=== PATIENT | female | born 1960 | race Asian ===

== ENCOUNTER 2016-08-13 17:36 | Emergency (ER) | payer OTHER ==
[~2016-08-13 17:36] MED LIST: ALBU8.5H2 IH; ASCO10007 PO; BUSP10TA2 PO; CALC-721 PO; CALC-766 PO; CHOL10008 PO; CYCL1DRO OP; ESCI10TA3 PO; HYDR25TA4 PO; MULT-36 PO; NPR500T PO; OMEG1CAP99 PO; OMEP-113 PO; PRAV20TA2 PO; PROC-4 PO; VALS160T23 PO
--- NOTE | 2016-08-13 17:42 | ED.REPORT ---
HPI-General Illness Date of Service August 13, 2016 ED Provider: Roderick Mensah MD Patient is a 56 year old female with a history of hypertension, hyperlipidemia, GERD and migraine headaches who presents to the ED via EMS following a syncopal episode that occurred just prior to arrival. Patient was reportedly standing in line at [employer] began to experience dizziness, tunnel vision and lightheadedness. She states that when she passed out that a bystander was able to catch her and that she did not strike her head. Family reports that he left the patient 5 minutes prior to the incident and she was completely normal. Since the episode, patient has been reportedly been somnolent She is unsure if she lost consciousness. She denies head injury, fever, chills vomiting, or diarrhea. Patient denies any previous episodes of similar symptoms or history of seizures. Current medication list include Lexapro, Buspirone, hydrochlorothiazide, statin, omeprazole, amlodipine and multivitamins. She denies taking more of any medication than prescribed. She admits that she has not been eating and drinking much. Nursing Notes Stated Complaint: SYNCOPY Nursing Notes Reviewed: Yes Allergies: Coded Allergies: oxycodone (Verified Adverse Reaction, Intermediate, ITCHING, 08/13/16) prednisone (Verified Adverse Reaction, Intermediate, Rash,Itching,, ) Scheduled Ascorbic Acid (Vitamin C) 1,000 Mg Tablet 1,000 MG PO DAILY Buspirone (Buspirone) 10 Mg Tablet 10 MG PO AM Calcium Carbonate/Vitamin D3 (Calcium 500 + D Tablet) 1 Each Tablet 1 EACH PO DAILY Cholecalciferol (Vitamin D3) (Vitamin D3) 1,000 Unit Tab.chew 1,000 UNIT PO DAILY Cyclosporine (Restasis) 1 Each Droperette 1 EACH OP BID Hydrochlorothiazide (Hydrochlorothiazide) 25 Mg Tablet 25 MG PO AM Multivitamin (Daily Multiple Vitamin) 1 Each Tablet 1 EACH PO DAILY [place]-3 Fatty Acids/Fish Oil (Fish Oil 1,200 mg Softgel) 1 Each Capsule 1 EACH PO DAILY Omeprazole Magnesium (Omeprazole) 20 Mg Capsule.dr 20 MG PO DAILY Pravastatin (Pravastatin) 20 Mg Tablet 20 MG PO PM Scheduled PRN Albuterol HFA (Proair HFA) 8.5 Gm Hfa.aer.ad 2 PUFFS IH Q4 PRN PRN For Shortness of Breath Naproxen (Naproxen) 500 Mg Tab 500 MG PO BID PRN PRN For Pain Prochlorperazine Maleate (Compazine) 10 Mg Tablet 10 MG PO TID PRN PRN For Headache Miscellaneous Medications Calcium Carbonate (Calcium) 500 Mg Tab.chew 500 MG PO Escitalopram Oxalate (Lexapro) 10 Mg Tablet 10 MG PO Valsartan (Valsartan) 160 Mg Tablet 160 MG PO General Time Seen by MD: 17:37 Chief Complaint Other (Syncope) Hx Obtained From: Patient Arrived By: Ambulance Sudden in Onset?: Yes Onset Occurred: Just prior to arrival Symptom Duration: Since onset Associated with: Reports: Dizziness, Syncope Pertinent Negative: Pt denies other symptoms Recent Healthcare: No recent doctor visit, No recent hospitalization Past Medical History Past Medical History Hypertension Hyperlipidemia Migraine headaches GERD Hiatal hernia Postive PPD with treatment for 1 year Asthma Past Surgical History Tubal Ligation Oopherectomy Colonoscopy Smoking History Current Every Day Smoker Social History Alcohol Use: Denies alcohol use Drug Use: Denies drug use Other Social History: Ambulatory Status Independent Review of Systems Full Review of Systems Constitutional: Denies: Chills, Fever GI: Denies: Nausea, Vomiting Neurologic: Reports: Change LOC, Dizziness, Lightheaded, Syncope, Denies: Headache Complete sys rev & neg: except as marked. Physical Exam Vital Signs Vital Signs Date Time Temp Pulse Resp B/P Pulse Ox O2 Delivery O2 Flow Rate FiO2 08/13/16 19:10 101 08/13/16 18:56 66 13 99 Room Air 08/13/16 18:10 63 16 156/80 98 Room Air 08/13/16 17:43 36.6 61 12 154/78 98 Room Air Initial VS: Reviewed Neck: Supple, Non-tender, Full range of motion Extremities: Vascular intact, Neuro intact, No swelling, No tenderness Skin: Warm, Dry, No cyanosis Neurologic: Alert, Oriented, Nonfocal Psychiatric: Mood/affect normal, Behavior normal, Normal thought content General/Constitutional: Awake, Alert, No acute distress Alertness: Positive: Sleeping but arousable, Somnolent GENERAL: Linear organized speech Head / Eyes: Atraumatic (Face and scalp are atruamaic), Normocephalic, PERRL ENT: Atraumatic, Airway patent Mouth: Positive: Mucous membranes dry Respiratory / Chest: Atraumatic, No respiratory distress Diminished Breath Sounds: Positive: Decreased bilateral Wheezing / Retractions: Positive: Prolonged exp phase, Wheeze insp/exp diffuse Cardiovascular: Heart rate NL, Regular rhythm, Heart sounds NL, No gallop, No murmurs, No rubs Abdomen: Atraumatic, Soft, Non-tender Neurologic: Oriented X3, No motor deficits, No sensory deficits, CN II - XII intact Mental Status: Positive: Somnolent Interpretation & Diagnostics Lab Results Interpretation Result Diagram: 08/13/16180908/13/160 Test 08/13/16 18:10 08/13/16 18:23 White Blood Count 7.7th/mm3 (3.8-10.1) Red Blood Count 3.86mil/mm3 (3.90-5.20) Hemoglobin 12.4g/dL (12.0-15.6) Hematocrit 36.0% (35.0-46.0) Mean Corpuscular Volume 93.3fL (81-100) Mean Corpuscular Hemoglobin 32.1pg (27.0-35.0) Mean Corpuscular Hemoglobin Concent 34.4% (32.0-37.0) Red Cell Distribution Width 11.6% (12.3-15.4) Platelet Count 261bil/L (150-400) Neutrophils (%) (Auto) 38.5% (40-74) Lymphocytes (%) (Auto) 52.0% (14-46) Monocytes (%) (Auto) 8.1% (4-12) Eosinophils (%) (Auto) 0.8% (0-5) Basophils (%) (Auto) 0.5% (0-3) Sodium Level 137mEq/L (134-144) Potassium Level 3.6mEq/L (3.5-5.2) Chloride Level 97mEq/L (97-108) Carbon Dioxide Level 27mmol/L (18-29) Blood Urea Nitrogen 12mg/dL (6-24) Creatinine 0.65mg/dL (0.57-1.00) Estimat Glomerular Filtration Rate 135mL/min (>59) Glucose Level 95mg/dL (60-99) Calcium Level 10.0mg/dL (8.5-10.1) Total Bilirubin 0.3mg/dL (0.0-1.2) Aspartate Amino Transf (AST/SGOT) 35U/L (0-50) Alanine Aminotransferase (ALT/SGPT) 32U/L (0-32) Alkaline Phosphatase 73U/L (25-150) Troponin T < 0.010ug/L (0.0-0.011) Pro-B-Type Natriuretic Peptide 32.23pg/mL (0-287) Total Protein 8.2g/dL (6.4-8.4) Albumin 4.6g/dL (3.4-5.0) Urine Color Yellow (YELLOW) Urine Appearance Clear (CLEAR,HAZY) Urine pH 5.5 (5.0-8.0) Urine Specific [place] 1.010 (1.003-1.035) Urine Protein Negativemg/dL (NEG,TRACE) Urine Glucose (UA) Negativemg/dL (NEGATIVE) Urine Ketones Negativemg/dL (NEGATIVE) Urine Occult Blood Trace (NEGATIVE) Urine Nitrite Negative (NEGATIVE) Urine Bilirubin Negative (NEGATIVE) Urine Urobilinogen Normalmg/dL (NORMAL) Urine Leukocyte Esterase Negative (NEGATIVE) Urine RBC 0-2/hpf (0-2) Urine WBC 0-5/hpf (0-5) Urine Epithelial Cells None/hpf (NONE-MOD) Urine Crystals None seen (NONE SEEN) Urine Bacteria Few/hpf (NONE-FEW) Urine Hyaline Casts None/lpf (NONE) Urine Granular Casts None seen (NONE SEEN) Urine Waxy Casts None seen (NONE SEEN) Urine Red Blood Cell Casts None seen (NONE SEEN) Urine White Blood Cell Casts None seen (NONE SEEN) Urine Mucus None seen (None Seen) Urine Trichomonas None seen (NONE SEEN) Urine Yeast None (NONE SEEN) Urinalysis Comment None Urine Culture Reflexed Not indicated ECG Interpretation ECG Interpretation: Sinus rhythm with rate of 68 bpm Normal axis Normal intervals No ST changes No T wave abnormalities No change from prior (08/18/15) Time: 19:08 Interpreted by: ED physician X-Ray Chest Interpretation Chest Xray Interpretation: IMPRESSION: No acute cardiopulmonary disease process. Dictated by: Flor Srivastava MD, PhD on 08/13/2016 at 18:41 Interpretation / Wet Read by: Interpret - Radiologist Re-Eval/Medical Decision Med Decision/Clinical Course Patient is a 56 year old female with a history of hypertension, hyperlipidemia, GERD and migraine headaches who presents to the ED via EMS following a syncopal episode that occurred just prior to arrival. Patient was reportedly standing in line at [employer] began to feel dizzy, tunnelled vision and lightheadedness. Family reports that he left the patient 5 minutes prior to the incident and she was completely normal. Since the episode, patient has been reportedly been somnolent She is unsure if she lost consciousness. She denies head injury, fever , chills vomiting, or diarrhea. Patient denies any previous episodes of similar symptoms or history of seizures. Current medication list include Lexapro, Buspirone, hydrochlorothiazide, statin, omeprazole, amlodipine and multivitamins. She denies taking more of any medication than prescribed. She admits that she has not been eating and drinking much. She states that when she passed out that a bystander was able to catch her and that she did not strike her head. Here in the emergency department the patient is somnolent with a very flat affect though without any evidence of head trauma or lateralizing neurologic deficits. She appears quite dehydrated was answering questions appropriately and is nontoxic in appearance. Chest X-ray IMPRESSION: No acute cardiopulmonary disease process. EKG Sinus rhythm with rate of 68 bpm Normal axis Normal intervals No ST changes No T wave abnormalities No change from prior (08/18/15) CBC unremarkable CMP unremarkable Hct 36 and stable Coag normal Troponin negative UA unremarkable Based on history, lack of convincing post-ictal phase, or incontinence I think her presentation is unlikely to be related to seizure. DDx includes but is not limited to: ACS, arrhythmia, PE, dissection, AAA, hypovolemia or vasovagal syncope. ECG does not show ischemia or conduction abnormality. There were no arrhythmias on telemetry but this cannot be excluded. PE, dissection and AAA are unlikely based on history, exam and evaluation. Patient has history consistent with dehydration, had positive orthostatic vital sign changes and improvement with IV hydration. Note the patient also does seem to have symptomatic asthma/COPD with quite a bit of wheezing. She responded well to nebulizer treatments. Initial plan to treat with steroids though she has had adverse reaction to corticosteroids in the past and therefore we opted to withhold further treatment with corticosteroids. Pt advised to drink lots of fluids, follow closely with primary care physician. At this time I feel that she is appropriate for outpatient management. Prior to discharge follow-up and return precautions were reviewed in detail with the patient who verbalized understanding and agreement with the plan. Of note, the patient continued to have a very flat affect and seems quite depressed though denied any suicidal ideation. She was seen and evaluated by emergency department nursing home social worker and provided with additional psychiatric resources that she is not felt to require further immediate psychiatric evaluation. The patient was discharged in stable condition. Time of Eval: 19:05 Patient Status: Condition unchanged Re-Evaluation/Progress Note: Patient is rechecked. Her discomfort is still present. She agrees with the plan to meet with the BUSINESS TRANSFORMATION ANALYST. Time of Eval: 20:17 Patient Status: Condition improved Re-Evaluation/Progress Note: Patient is informed of her results and diagnosis. All questions are addressed. She understands and agrees with the intended treatment plan. Counseled Regarding: Diagnosis, Lab results, Need for follow-up, When/why to return to ED Discharge & Departure Primary Impression: Syncope Syncope type: unspecified Qualified Code: R55 - Syncope and collapse Additional Impressions: Asthma exacerbation Dehydration Depression Depression Type: unspecified Qualified Code: F32.9 - Major depressive disorder, single episode, unspecified Disposition: Home Discharge Condition All VS Reviewed: Yes Condition: Stable Patient Instructions: Asthma (ED), Dehydration (ED), Depression (ED), Syncope ( ED) Additional Instructions: Thank you for seeking care at the emergency room. It is difficult for us to make definitive diagnoses in the ED but we believe that you are experiencing physical symptoms of stress, dehydration and asthma exacerbation. Our primary goal today in the ED was to evaluate you for any life-threatening conditions. Your evaluation was reassuring. Use inhalers at home as directed. Drink plenty of fluids and get plenty of rest. You should follow-up with your primary doctor in the next week. You should return to the ED immediately if you develop vomiting, headache, chest pain, lightheadedness, weakness, decreased consciousness, thoughts of harming yourself or others or any other concerning signs or symptoms. Thank you for letting us partake in your care today. Referrals: Mindy Brenner (PCP) Scribe Attestation Portions of this note were transcribed by Almita Patel. I, Dr. Mensah personally performed the history, physical exam and medical decision-making; I reviewed and confirmed the accuracy of the information in the transcribed note. Signed by: Gloria Henley, 08/13/162036. copies to: Mindy Brenner Beck O MD August 13, 2016 17:42 ALMITA PATEL August 13, 2016 17:48
[2016-08-13 17:43] VITALS: BP 154/78; PULSE 61; RESP 12; O2SAT 98
[2016-08-13] MEDS ORDERED: 0.9% Sodium Chloride 1,000 ML IV ONE ×2 (17:59→19:10)
[2016-08-13] MEDS ORDERED: Albuterol-Ipratropium 3 mL Inhalation Solution NEB ONE ×2 (18:00→19:10)
[2016-08-13] MEDS ORDERED: Albuterol 2.5 mg/3 mL Inhalation Solution NEB ONE (18:00)
[2016-08-13 18:10] VITALS: BP 156/80; PULSE 63; RESP 16; O2SAT 98
[2016-08-13 18:32] LABS: BASOPHILS % (AUTO) 0.5 % (0-3); EOSINOPHILS % (AUTO) 0.8 % (0-5); MONOCYTES % (AUTO) 8.1 % (4-12); Mean Corpuscular Hemoglobin 32.1 pg (27.0-35.0); Mean Corpuscular Volume 93.3 fL (81-100); NEUTROPHILS % (AUTO) 38.5 % (40-74); Platelet Count 261 bil/L (150-400)
[2016-08-13 18:42] LABS: APPEARANCE,URINE CLEAR (CLEAR,HAZY); COLOR,URINE YELLOW (YELLOW); PH,URINE 5.5 (5.0-8.0)
--- NOTE | 2016-08-13 18:42 | DRSVH ---
PROCEDURE: X-RAY CHEST, TWO VIEWS ([id number]) INDICATIONS: wheezing, sob, pna? TECHNIQUE: 2 views of the chest were acquired. COMPARISON: None. FINDINGS: Surgical changes and devices: None. Lungs and pleura: No pleural effusions or pneumothorax. Lungs are clear. Mediastinum: Mediastinal contours are normal. Heart size is normal. Bones and chest wall: No suspicious bony abnormalities. Soft tissues appear unremarkable. IMPRESSION: No acute cardiopulmonary disease process. Dictated by: Flor Srivastava MD, PhD on 08/13/2016 at 18:41 Approved by: Flor Srivastava MD, PhD on 08/13/2016 at 18:41
[2016-08-13 18:43] LABS: OCCULT BLOOD,URINE TRACE (NEGATIVE); UROBILINOGEN,URINE NORMAL (NORMAL)
[2016-08-13 18:48] LABS: TROPONIN T < 0.010 ug/L (0.0-0.011)
[2016-08-13 18:56] VITALS: PULSE 66; RESP 13; O2SAT 99
[2016-08-13 19:10] VITALS: PULSE 101
[2016-08-13] MEDS ORDERED: MethylprednisoLONE Sodium Succinate 62.5 mg/mL 2 mL Inj IVPUSH ONE (19:10)
[2016-08-13 21:06] VITALS: BP 163/86; PULSE 87; RESP 16; O2SAT 94
== END 2016-08-13 21:09 | disposition home or self-care (01) ==
LOC: SED 17:36
DX: R55 Syncope and collapse (principal); J45.901 Unspecified asthma with (acute) exacerbation; E86.0 Dehydration; F32.9 Major depressive disorder, single episode, unspecified; I10 Essential (primary) hypertension; E78.5 Hyperlipidemia, unspecified; K21.9 Gastro-esophageal reflux disease without esophagitis; F17.200 Nicotine dependence, unspecified, uncomplicated; Z88.5 Allergy status to narcotic agent; Z88.8 Allergy status to other drugs, medicaments and biological substances
CPT/HCPCS: 36415; 71020; 80053; 81000; 82948; 83880; 84484; 85025; 93005; 94664; 96361; 96374; 99285; J2930; J7030; J7613; J7620

== ENCOUNTER → 2016-12-04 | Day surgery (SDC) | payer OTHER ==
[~2016-12-04] VITALS: Ht 162.6 cm; Wt 65.0 kg
[2016-12-04] VITALS (9 sets, daily range): BP systolic 111–150; BP diastolic 60–76; PULSE 73–96; RESP 9–19; O2SAT 94–98
[~2016-12-04] MED LIST changes: -ALBU8.5H2 IH; +ALBU8.5H2 INHALATION; +AMLO5TAB2 PO; -ASCO10007 PO; -BUSP10TA2 PO; +BUSP5TAB3 PO; -CALC-721 PO; -CALC-766 PO; +CALC-952 PO; +CALC625T83 PO; -CYCL1DRO OP; +DOCO1CAP3 PO; +Dexamethasone 4 mg/mL Inj IVPUSH PRN; +EPHEDrine Sulfate 50 mg/mL Inj IVPUSH PRN; +EPHEDrine/NS 5 mg/mL 5 mL Syringe ONE; -ESCI10TA3 PO; +ESCI20TA PO; +HYDR-4003 PO; +HYDROcodone-APAP 7.5-325 mg/15 mL 15 mL Solution ONE; +HYDROmorphone 1 mg/mL Inj IVPUSH PRN; +IBUP800T28 PO; +Lactated Ringer's 1,000 ML IV ONE; +Lactated Ringer's 1,000 ML IV SCH; +Lactated Ringer's 500 ML IV PRN; +MULT-1018 PO; -MULT-36 PO; +MetoCLOpramide 5 mg/mL 2 mL Inj IVPUSH PRN; -NPR500T PO; -OMEG1CAP99 PO; -OMEP-113 PO; +OMEP20CA11 PO; +Ondansetron 2 mg/mL 2 mL Inj IVPUSH PRN; -PRAV20TA2 PO; +PRAV40TA PO; -PROC-4 PO; +Phenylephrine 10,000 mCg/mL Inj IVPUSH PRN; +Propofol 10,000 mCg/mL 20 mL Inj ONE; +Remifentanil 1 mg/3 mL Inj ONE; +fentaNYL-PF 50 mCg/mL 2 mL Inj IVPUSH PRN
--- NOTE | 2016-12-04 08:30 | PCM.ANEP1 ---
Post Anesthesia PACU Phase 1 Assessment Vital Signs Vital Signs Date Time Temp Pulse Resp B/P Pulse Ox O2 Delivery O2 Flow Rate FiO2 12/04/16 08:25 96 9 125/62 98 Nasal Cannula 2 12/04/16 08:23 37.1 94 9 124/65 98 Nasal Cannula 2 12/04/16 06:15 36 73 14 150/76 98 Room Air Anesthetic Administered: GA Level of Alertness: Sleepy, easy to arouse DELANEY's with Equal Strength: Yes Pain: Yes Pain Scale Score: 2 Nausea or Vomiting: No CV Function & Hydration Stable: Yes Airway Device: Oxygen Delivery: Nasal Cannula Lungs: Clear to Auscultation PACU Phase 2 Assessment Patient Instructions Provided: Yes Taj Mora MD Dec 04, 2016 08:30
--- NOTE | 2016-12-04 09:33 | PCM.HPANE ---
Patient Data Surgeon Admitting Provider: Attending Provider:Jean Paul Eller MD Primary Care Physician:Mindy Brenner Other Provider:[facility] Reason for Visit Edema Of Larynx,Laryngeal Neoplasm Ht/WT & BMI Height (Feet): 5 Height (Inches): 4.00 Weight (Kilograms): 65 Body Mass Index 24.00 Allergies Coded Allergies: codeine (Verified Allergy, Intermediate, 12/04/16) hydrocodone (Verified Adverse Reaction, Intermediate, itching, 12/04/16) oxycodone (Verified Adverse Reaction, Intermediate, ITCHING, 08/13/16) prednisone (Verified Adverse Reaction, Intermediate, Rash,Itching,, ) Past Anesthesia History Anesthesia History: Denies:: Abnormal Airway, Anesthesia Reactions, Difficult Intubation, Fam Anesthesia Reaction, Fam Malignant Hypertherm, Malignant Hyperthermia Diabetes History Hx Diabetes?: No MRSA MRSA: No Medications Hypertension Medication: Yes Home Meds Incl Beta Carlos A: No Reported Medications Cholecalciferol (Vitamin D3) (Vitamin D3)1,000 Unit Tab.chew1,000 Unit PO DAILY 11/24/16 Valsartan 160 Mg [id number] Mg PO DAILY 11/24/16 Albuterol HFA (Proair HFA)8.5 Gm Hfa.aer.ad2 Puffs INHALATION Q4H PRN For Severe Pain #1 INHALER 11/24/16 Pravastatin 40 Mg [id number] Mg PO DAILY Ref 0 11/24/16 Omeprazole 20 Mg Capsule.dr20 Mg PO DAILY Ref 0 11/24/16 Multivitamin (Multi Vitamin Daily)1 Each Tablet1 Each PO DAILY 30 Days Ref 0 11/24/16 Escitalopram Oxalate (Lexapro)20 Mg [id number] Mg PO DAILY 30 Days Ref 0 11/24/16 Ibuprofen 800 Mg Uaccre164 Mg PO TID PRN For Pain Ref 0 11/24/16 Hydrochlorothiazide 25 Mg Kumupn06 Mg PO DAILY 30 Days Ref 0 11/24/16 Docosahexanoic Acid/Epa (Fish Oil Concentrate Softgel)1 Each Capsule1 Each PO DAILY 11/24/16 Calcium Polycarbophil (Fiber-Caps)625 Mg Wbteon765 Mg PO BID 11/24/16 Calcium Carbonate/Vitamin D3 (Calcium 500 mg Chewable Tablet)1 Each Tab.chew1 Each PO DAILY 11/24/16 Buspirone 5 Mg Tablet2.5 Mg PO BID Ref 0 11/24/16 Amlodipine 5 Mg Tablet5 Mg PO DAILY Ref 0 11/24/16 Discontinued Reported Medications Hydrocodone-Acetaminophen 5-325 mg 1 Each Tablet1 Tablet PO Q6H PRN For Pain Ref 0 11/24/16 History History of ENT Problems?: Yes HEENT History: Positive for:: Sinus Problem TMJ (recent dx- no nightguard yet ) Denies:: Abnormal Airway Difficult Intubation Dysphagia Hearing Problem Denture Type: None Teeth Condition: Within Normal Limits Hx of Heart Problems?: Yes Cardiovascular History: Positive for:: Hypertension Denies:: AICD Atrial Fibrillation Cardiac Surgery Chest Pain Congestive Heart Failure Heart Murmur Irregular Heartbeat Pacemaker Thrombophlebitis Valvular Heart Disease Hx of Respiratory Problem?: Yes Respiratory History: Positive for:: Asthma Dyspnea Tuberculosis (TESTED POSITIVE in the 80's while in [facility]) Denies:: COPD Chest Surgery Cough Hemoptysis Pneumonia Use of C-PAP Machine Hx Neurologic Problems?: Yes Neurological History: Positive for:: Dizziness Headaches Denies:: CVA Dementia Seizures Hx of GI Problems?: Yes Hx of Problems?: No Female Hx: Positive for:: Problems with Breasts? (S/P BENIGN BREAST BX) Denies:: Currently Endometriosis Pelvic Inflammatory Skin History: Denies:: History Skin Disorders? Pressure Ulcers Hx Musculoskeletal Problems?: No Musculoskeletal History: Denies:: Joint Replacement Hx of Psycho/Social Problems?: Yes Psycho Social History: Positive for:: Anxiety Hx Depression Suicide Attempt (2004-HOSPITALIZED) Hx Surgeries?: Yes (tubal ligation, breast bx) Hx Any Other Health Problems?: Yes Other History: Positive for:: Hospitalization (DEPRESSION) Denies:: Cancer Endocrine Disease Thyroid Disease History Blood Transfusions: Denies:: Blood Transfuse Reaction Blood Transfusions Hx Diabetes: No Hx Alcohol Use: NoHx Substance Use: No (denies) Smoking Status: Current Every Day Smoker Have You Smoked inLast 12 mo: Yes Stop/Bang Treated for Sleep Apnea?: No Do You Have a CPAP Machine?: No P-Blood Pressure: treated: Yes B- Body Mass Index > 35 kg/m2: No A- Age over 50: Yes N- Neck Large Circumference: No G- Gender Male: No AIDEE Risk Assessment: Low Risk, <3 Yes Risk Assessment Category Category 1A: Patient has history of documented sleep apnea, and HAS NOT received any narcotic, sedative or anesthesia administration during this stay. Category 1B: Patient has history of documented sleep apnea, and HAS received any narcotic , sedative or anesthesia administration during this stay Category 2: Patient has SUSPECTED Obstructive Sleep Apnea, and HAS received any narcotic , sedative or anesthesia administration during this stay. Category 3: Patient has SUSPECTED Obstructive Sleep Apnea and HAS NOT received narcotic, sedative or anesthesia administration during this stay. Category 4: Outpatient in Procedural Areas with known sleep apnea or who screen positive for High Risk via the STOP/BANG questionnaire. Exam Exam Vital Signs Vital Signs Date Time Temp Pulse Resp B/P Pulse Ox O2 Delivery O2 Flow Rate FiO2 12/04/16 09:20 77 14 128/60 94 Room Air 12/04/16 08:51 116/70 12/04/16 08:48 36 90 14 94 Room Air 12/04/16 08:40 37.0 89 11 120/67 98 Room Air 12/04/16 08:35 88 12 111/64 98 Nasal Cannula 2 12/04/16 08:30 93 19 120/63 98 Nasal Cannula 2 12/04/16 08:30 Nasal Cannula 12/04/16 08:25 96 9 125/62 98 Nasal Cannula 2 12/04/16 08:23 37.1 94 9 124/65 98 Nasal Cannula 2 12/04/16 06:15 36 73 14 150/76 98 Room Air General Appearance: Alert HEENT/AIRWAY: MP 1 Lungs: Clear to Auscultation Heart: Exam Unremarkable Meds/Labs/Diagnostics Admission Meds Current Medications Lactated Ringer's (Lr) 1,000 ml @ ud STK-MED ONCE IV Last administered on 12/04 06:27; Start 12/04/16 at 06:27; Stop 12/04/16 at 06:28; Status DC Acetaminophen/ Hydrocodone Bitart (Lortab 7.5-325/ 15 mL) 15 ml STK-MED ONCE .ROUTE Last administered on 12/04/16 08:56; Start 12/04/16 at 08:54; Stop 02/09 at 08:55; Status DC Plan Impression Patient chart reviewed, patient interviewed and anesthestic plan with risks, benefits, and alternatives discussed, and informed consent obtained. NPO per Anesth. Guidelines: Yes ASA Physical Status: ASA3 Severe Disease Anesthetic Support Modalities: Rebuck Scope Anesthetic Plan: GA Bene/Risks/Altern/Consents: Yes HP Complete Prior to Induction: Yes Taj Mora MD Dec 04, 2016 09:33
--- NOTE | 2016-12-05 12:04 | OP ---
[address] [address] OPERATIVE REPORT PATIENT: FABI RODAS : 1960 MR#: [id number] ADMIT: 12/04/2016 JOB ID: [id number] DATE OF SURGERY: 12/04/2016 SURGEON: Jean Paul Eller MD CEMENT BASED MATERIALS PUMP TENDER: Miles Ohara MD PREOPERATIVE DIAGNOSIS(ES): Laryngeal lesion. POSTOPERATIVE DIAGNOSIS(ES): Laryngeal lesion. PROCEDURE PERFORMED: Direct laryngoscopy with biopsy. MATERIAL TO LAB: Left laryngeal lesion. COMPLICATIONS: None. BLOOD LOSS: Less than 1 cc. ANESTHESIA: General endotracheal anesthesia. INDICATIONS: The patient is a 56-year-old female patient with a long smoking history and a history of chronic globus sensation. She has been seen multiple times in the ENT clinic where nasopharyngoscopy demonstrated a nonulcerated, erythematous lesion with no mass effect on the right arytenoid process. This has been present on multiple examinations and a recommendation was made for biopsy. INTRAOPERATIVE FINDINGS: Include no evidence of previously identified lesion even after repeated complete examination of the arytenoid complex and periepiglottic fold on the patient's right, however, there was a similar lesion noted on the left hand side, which was biopsied. DESCRIPTION OF PROCEDURE: The patient was met and identified in the preoperative holding area. Informed consent was verified. Questions were answered and the patient was turned over to anesthesia and taken to the operating room where general anesthesia was induced. Surgical pause was performed which in correct patient and procedure identified. The bed was rotated 90 degrees. The patient was prepped and draped in a standard fashion for this surgery. A tooth guard was placed into the patient's mouth to protect the upper teeth. A Dido laryngoscope was then used in a standard fashion to evaluate the laryngeal structures. The entire written complex, false vocal cord and area of the epiglottic fold as well as the epiglottis were evaluated and the previously identified erythematous lesion on the right in the periepiglottic fold versus arytenoid complex was not noted. Attention was turned to the contralateral side were examination demonstrated a similar lesion along the periepiglottic fold that was biopsied. This lesion was 2-3 mm in total size, mildly erythematous compared to the surrounding tissue with no significant mass effect. No significant bleeding was encountered, less than 1 cc of bleeding noted. The patient was then turned back over to anesthesia for awakening. She tolerated the procedure well.
--- NOTE | 2016-12-06 16:10 | PATH ---
SURGICAL PATHOLOGY Attending Physician:See Additional MD CASE STATUS: Signed Out PATIENT NAME: FABI RODAS PID: [id number] : 1960 DATE COLLECTED:12/04/2016 22:32 SPECIMEN: Larynx, Biopsy CLINICAL HISTORY: EDEMA OF LARYNX, LARYNGEAL NEOPLASM 1). LEFT LARYNGEAL LESION FINAL DIAGNOSIS: Left Laryngeal Lesion, Biopsy: Benign laryngeal nodule No evidence of dysplasia or malignancy. Additional levels were examined. ICD10: J38.4 NOTE: This small polypoid lesion is covered by benign squamous epithelium and has edematous mucosa with increased plasma cells and multiple small thin walled blood vessels, without telangiectatic appearance. No thrombosis or fibrinous exudate is identified. 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 GROSS DESCRIPTION: The specimen is received in one formalin filled container labeled with the patient's name, sublabeled "LEFT LARYNGEAL LESION" and consists of a 0.2 x 0.2 x 0.2 CM portion of tissue which is entirely submitted in one cassette. 12/05/2016FL ICD-9 CODES: CPT CODES: 1: 15174 Electronically Signed Out Alesha Matos MD [facility] [address], [place] [address] Technical component performed at [facility], [address] [place] [address] [address], [place], [address]
== END | disposition home or self-care (01) ==
LOC: SAS 05:44
PROVIDERS: ATTEND Otolaryngology
DX: J38.4 Edema of larynx (principal); D38.0 Neoplasm of uncertain behavior of larynx; I10 Essential (primary) hypertension; K21.9 Gastro-esophageal reflux disease without esophagitis; J45.909 Unspecified asthma, uncomplicated; M19.90 Unspecified osteoarthritis, unspecified site; F41.8 Other specified anxiety disorders; F17.210 Nicotine dependence, cigarettes, uncomplicated; Z86.11 Personal history of tuberculosis
CPT/HCPCS: 31536; 88305; J2704; J7120